=== PATIENT | male | born 1965 | race Caucasian/White ===

== ENCOUNTER 2017-06-30 12:08 | Observation (INO) | payer BC ==
[2017-06-30] VITALS (13 sets, daily range): BP systolic 116–140; BP diastolic 61–94
[~2017-06-30] VITALS: Ht 167.6 cm; Wt 88.5 kg
--- NOTE | ~2017-06-30 | H ---
[address] [address] HISTORY AND PHYSICAL Name: ROE SANDERS Room: [address] Anitha Ocasio#: [id number] Admission: 06/30/17 Attend Phys: Vinny Kee MD Discharge: 07/01/17 Date of : 65 Report #: [id number] THIS REPORT FOR: //name// Please refer to the History and Physical performed in the physician's office. By: 0704Medical Records Staff VERONICA /MYRNA
--- NOTE | ~2017-06-30 | H ---
[facility] [address] [place] [address] HISTORY AND PHYSICAL Name: ROE SANDERS Room: [address] Anitha Ocasio#: [id number] Admission: 06/30/17 Attend Phys: Vinny Kee MD Discharge: 07/01/17 Date of : 65 Report #: [id number] THIS REPORT FOR: //name// By: D: T: Medical Records Staff [facility] /
--- NOTE | ~2017-06-30 | H ---
[facility] [address] [facility] [place] [address] HISTORY AND PHYSICAL Name: ROE SANDERS Room: [address] Anitha Ocasio#: [id number] Admission: 06/30/17 Attend Phys: Vinny Kee MD Discharge: 07/01/17 Date of : 65 Report #: [id number] THIS REPORT FOR: //name// By: D: Medical Records Staff [facility] /
[~2017-06-30 12:08] MED LIST: ASA5UEC PO; ATORVASTATIN CA40 MG PO; B COMPLEX1 EAC1 PO; GLIPIZIDE 10 MG10 MG PO; GLUCOPHAGE XR750 MG PO; LISINOPRIL2.5 MG PO; NEXIUM40 MG PO; RANEXA500 MG PO; TOPROL XL25 MG PO; VITAMIN D1000 UNI1 PO; VITAMIN E400 UNIT PO
[2017-06-30 12:54] LABS: HEMATOCRIT 48.1 % (42.0-52.0); HEMOGLOBIN 16.9 gm/dL (14.0-18.0); MCH 30.9 pg (26.0-34.0); MCV 88.3 fL (80.0-100.0); MPV 7.8 fl. (7.2-11.1); RBC 5.45 mil/uL (4.50-6.00); RDW-CV 13.2 % (10.5-14.5); WBC 8.1 thou/uL (4.0-11.0)
[2017-06-30] MEDS ORDERED: CO Q-10100 M1 PO (12:56)
[2017-06-30] MEDS ORDERED: JARDIANCE10 MG PO (12:56)
[2017-06-30 13:26] LABS: APTT 29.2 Seconds (25.0-31.3)
[2017-06-30 13:34] LABS: ANION GAP 12 mmol/L (7-16); BUN 17 mg/dL (7-18); CALCIUM 9.1 mg/dL (8.5-10.1); CHLORIDE 99 mmol/L (98-107); CO2 27 mmol/L (21-32); GLUCOSE 177 mg/dL (70-99); POTASSIUM 3.8 mmol/L (3.5-5.1); SODIUM 138 mmol/L (136-145)
[2017-06-30 13:39] LABS: ALBUMIN 4.7 g/dL (3.4-5.0); ALKALINE PHOSPHATASE 107 U/L (46-116); CHOLESTEROL 211 mg/dL (<200); HDL CHOLESTEROL 34 mg/dL (>40); LDL CHOLESTEROL 140 mg/dL (<100); SERUM ASSESSMENT Clear; SGOT 23 U/L (15-37); SGPT 47 U/L (30-65); TC:HDL 6.2 Ratio (Not establshd); TOTAL BILIRUBIN 0.6 mg/dL (<0.1-1.0); TOTAL PROTEIN 8.3 g/dL (6.4-8.2); TRIGLYCERIDE 188 mg/dL (<150); VLDL 38 mg/dL (<40)
--- NOTE | 2017-06-30 17:51 | EKG ---
[place] [address] ELECTROCARDIOGRAM REPORT Name: ELLIEROE HUNT Room: [address] IN .R.#: [id number] Admission: 06/30/17 Attend Phys: Vinny Kee MD Discharge: Date of : 65 Report #: [id number] THIS REPORT FOR: //name// [facility] Test Date: 2017-06-30 Test Time: 13:28:25 Pat Name: ROE SANDERS Department: Room: [facility] Gender: M Criminal Investigator: : 1965 Requested By: Vinny Kee Order Number: [id number] Calli MD: Issa Nicholson Measurements Intervals [place] Rate: 77 P: 42 ID: 157 QRS: -35 QRSD: 111 T: 33 QT: 382 QTc: 433 Interpretive Statements Sinus rhythm Left axis deviation ST elev, probable normal early repol pattern No previous ECG available for comparison Electronically Signed On 06-30-2017 17:51:49 CDT by Issa Nicholson [email or web address] <ELECTRONICALLY SIGNED> By: Issa Nicholson MD, [facility] 06/30/17 1751 1328 Issa Nicholson MD, FACC /EPI
[2017-07-01] VITALS: BP 120/76
[2017-07-01 04:00] VITALS: BP 114/77
[2017-07-01 05:11] LABS: HEMATOCRIT 45.7 % (42.0-52.0); HEMOGLOBIN 15.6 gm/dL (14.0-18.0); MCH 30.6 pg (26.0-34.0); MCHC 34.2 g/dL (28.0-37.0); MCV 89.5 fL (80.0-100.0); MPV 7.7 fl. (7.2-11.1); RBC 5.11 mil/uL (4.50-6.00); RDW-CV 13.1 % (10.5-14.5); WBC 8.4 thou/uL (4.0-11.0)
[2017-07-01 05:26] LABS: ALBUMIN 3.9 g/dL (3.4-5.0); CALCIUM 8.9 mg/dL (8.5-10.1); CREATININE 0.9 mg/dL (0.6-1.3); POTASSIUM 3.8 mmol/L (3.5-5.1); TOTAL BILIRUBIN 0.7 mg/dL (<0.1-1.0); TOTAL PROTEIN 6.8 g/dL (6.4-8.2); TROPONIN-I LEVEL 0.15 ng/mL (<0.06)
[2017-07-01 08:00] VITALS: BP 117/78
[2017-07-01 08:52] VITALS: BP 117/78
[2017-07-01 09:17] VITALS: BP 117/78
[2017-07-01 09:46] VITALS: BP 117/78
[2017-07-01] MEDS ORDERED: BRILINTA90 MG PO (11:42)
--- NOTE | 2017-07-01 16:17 | D ---
[address] [address] DISCHARGE SUMMARY Name: ROE SANDERS Room: [address] Anitha Ocasio#: [id number] Admission: 06/30/17 Attend Phys: Vinny Kee MD Discharge: 07/01/17 Date of : 65 Report #: [id number] THIS REPORT FOR: //name// CC: Mora Kee DISCHARGE DIAGNOSES: 1. Unstable angina. 2. Coronary artery disease. 3. Hyperlipidemia. PROCEDURES DURING THE HOSPITALIZATION: Percutaneous coronary intervention with drug-eluting stent placement to the mid to distal left anterior descending coronary artery. HOSPITAL COURSE: The patient was brought in electively for left heart catheterization. On coronary angiography, he was found to have a high-grade 90% stenosis involving his mid to distal left anterior descending coronary artery. He had patent stents in the proximal to mid LAD, first obtuse marginal and proximal right coronary artery. By left ventriculogram, he has normal left ventricular systolic function. The patient underwent percutaneous coronary intervention with placement of a 2.0 x 15 mm length drug-eluting stent to the mid to distal LAD. The patient tolerated the procedure well and without complication. During hospitalization, labs were checked. His basic metabolic profile was within normal limits. Serum glucose was mildly elevated at 157. LFTs were within normal limits. EGFR was 89. Troponin post-procedure was 0.15. A lipid profile showed a total cholesterol 211, triglycerides 188, HDL 34, LDL 140. CBC was within normal limits. DISCHARGE MEDICATIONS: Include Brilinta 90mg p.o. b.i.d., Nexium 1 tablet daily, lisinopril 2.5 mg daily, glipizide 10 mg daily, atorvastatin 40 mg daily, aspirin 81 mg daily, Zetia 10 mg daily, Coq10 one tablet daily, vitamin D 1000 units daily, Jardiance 10 mg daily, metformin 750 mg as directed, Ranexa 500 mg b.i.d., and vitamin E 400 units daily. DISPOSITION: The patient will follow up with myself in 6 weeks in the Cardiology office. <ELECTRONICALLY SIGNED> By: Vinny Kee MD, FACC 07/01/17 1617 0935 1031[facility] Kee MD, FACC /nt
--- NOTE | 2017-07-02 13:17 | CARD ---
[address] [address] CARDIAC CATH REPORT Name: ROE SANDERS Room: [address] Anitha Ocasio#: [id number] Admission: 06/30/17 Attend Phys: Vinny Kee MD Discharge: 07/01/17 Date of : 65 Report #: [id number] THIS REPORT FOR: //name// APPROVED REPORT Study performed: 06/30/2017 12:33:56 Patient Details Patient Status: Out-Patient Room #: The patient is a 51 year-old male Event Personnel Vinny Kee Finance And Administration Manager, Jordana Costa RN Personal Investment Adviser, Nabor Renee (R) Monitor, Emily Cavanaugh Holkins, John Quantitative Analyst Procedures Performed MOIR[facility] Place w/wo Plasty Single LAD; left heart catheterization left ventriculography and selective coronary arteriography Indication Unstable angina Risk Factors Family History, Hypercholesterolemia Admission/Lab Medications/Medications given during procedure Aspirin, Platelet Aff. Inhib., Angiomax bolus and infusion Procedure Narrative The patient was brought electively to the Cardiac Catheterization Laboratory and was prepped and draped in a sterile manner. The right wrist was infiltrated with 1% Lidocaine subcutaneous anesthesia. A Slender Glidesheath sheath was inserted into the Right Radial Artery. Coronary angiography was performed using coronary diagnostic catheters. The right coronary system was accessed and visualized with a Diagnostic [place] 4.0 6fr catheter. The left coronary system was accessed and visualized with a Diagnostic [place] 4.0 6fr catheter. The left ventricle was accessed and visualized with a Diagnostic Angled Pig catheter. Left ventricular/Aortic Valve gradient assessed via catheter pullback. Left ventriculogram was performed in SCHUSTER projection. Closure device was deployed with a Fr Vasc-Band Reg 24cm. The patient tolerated the procedure well and there were no complications associated with the procedure[place] [address] CARDIAC CATH REPORT Name: ROE SANDERS Room: [address] Ninfa#: [id number] Admission: 06/30/17 Attend Phys: Vinny Kee MD Discharge: 07/01/17 Date of : 65 Report #: [id number] hematoma. Intraoperative Conscious Sedation Sedation start time: 15:37 Case end Time: 16:35 Fentanyl 25 mcg Versed 2 mg Fluoro Time: 14.4 minutes Dose: DAP [id number] cGycm2 1896 mGy Contrast Type and Amount: Visipaque 300 ml Coronary Angiography The patient's coronary anatomy is right dominant. Diagnostic Cath Left Main 0% narrowing LAD 30% proximal 40% mid and 90% distal LAD stenosis Circumflex 70% tubular mid circumflex narrowing Right Coronary Dominant vessel with 30% mid and distal narrowing as Left Ventriculography The left ventricle is normal in size with normal contractility. The left ventricular ejection fraction is estimated to be 60%. Left ventricular wall motion abnormalities are not present. There is no mitral insufficiency. Hemodynamics The aortic pressure is 115/72 mmHg with a mean of mmHg. The left ventricular pressure is 121/3 mmHg with a mean of mmHg. The left ventricular end diastolic pressure is 4 mmHg. There was no gradient across the aortic valve upon pullback. PCI Technique Lesion Anticoagulation was achieved with Angiomax. Patient was preloaded with Angiomax IV 13.5 ml. Percutaneous coronary intervention was performed on the distal left anterior descending artery segment. The lesion stenosis prior to intervention was 90% with TAL 0 flow. A 6FR XB 3.0 100CM Guide Catheter was used to engage the ostium. A IG: ProwaterFlex 180CM Interventional Guidewire was used to cross the lesion. BALLOON DILATION A Balloon catheter Mini Trek RX 2.0 X 12 was inserted and inflated up to 10.00atm for 22seconds. [place] [address] CARDIAC CATH REPORT Name: ROE SANDERS Natalio Room: [address] Ninfa#: [id number] Admission: 06/30/17 Attend Phys: Vinny Kee MD Discharge: 07/01/17 Date of : 65 Report #: [id number] STENT DEPLOYMENT A drug-eluting stent Xience Alpine RX 2.25X15 was inserted and inflated up to 8.00atm for 13seconds. Additional Inflation: 9.00atm for 13seconds. Additional Inflation: 8.00atm for 16seconds. Final angiography reveals 0 % stenosis with TAL 3 flow. Conclusion #1 significant coronary artery disease characterized by the following: A 30% proximal 40% mid and 90% distal LAD stenosis, B 70% tubular narrowing of the midportion of the nondominant circumflex, C dominant right coronary artery with 30% mid and distal narrowings #2 normal left ventricular systolic function, estimate ejection fraction being 65% #3 normal left-sided hemodynamics study, #4 successful percutaneous coronary intervention with deployment of drug-eluting stent at site of 90% distal LAD stenosis with 0% residual narrowing following stent deployment and TAL-3 flow the distal vessel. Recommendations Cardiac Risk Reduction Program Aggressive Medical Therapy Medications Administered Aspirin (any) Ticagrelor Diagnostic Cath Approved by: Vinny Kee MD Date/Time: 07/02/17 at 1316 hrs. <ELECTRONICALLY SIGNED> By: Issa Nicholson MD, FACC 07/02/17 1317 16 1317Issa Nicholson MD, FAC /INF
--- NOTE | 2017-07-02 17:17 | EKG ---
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: : 1965 Requested By: Issa Nicholson Order Number: [id number] Calli MD: Vinny Kee Measurements Intervals [place] Rate: 76 P: 82 OR: 181 QRS: -13 QRSD: 104 T: -20 QT: 382 QTc: 430 Interpretive Statements Sinus rhythm Borderline ST elevation, anterior leads Artifact in lead(s) II,III,aVL,aVF and baseline wander in lead(s) I,II,aVR Compared to ECG 06/30/2017 13:28:25 Left-axis deviation no longer present ST (T wave) deviation still present Electronically Signed On 07-02-2017 17:16:55 CDT by Vinny Kee [email or web address] <ELECTRONICALLY SIGNED> By: Vinny Kee MD, [facility] 07/02/17 1716 26 26 Vinny Kee MD, [facility] /EPI
--- NOTE | 2017-07-02 17:21 | EKG ---
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: : 1965 Requested By: Issa Nicholson Order Number: [id number] Calli MD: Vinny Kee Measurements Intervals [place] Rate: 81 P: 51 NE: 156 QRS: -23 QRSD: 108 T: 8 QT: 367 QTc: 426 Interpretive Statements Sinus rhythm Borderline left axis deviation ST elev, probable normal early repol pattern Compared to ECG 06/30/2017 13:28:25 No significant changes Electronically Signed On 07-02-2017 17:21:09 CDT by Vinny Kee [email or web address] <ELECTRONICALLY SIGNED> By: Vinny Kee MD, FACC 07/02/17 1721 0829 Vinny Kee MD, [facility] /EPI
== END 2017-07-01 12:00 | disposition home or self-care (01) ==
LOC: M.CL 12:08 → M.TBA-ER 16:49 → M.2W 16:49
PROVIDERS: Internal Medicine; ADMIT Internal Medicine Cardiovascular Disease
DX: I25.110 Atherosclerotic heart disease of native coronary artery with unstable angina pectoris (principal); E78.5 Hyperlipidemia, unspecified; I10 Essential (primary) hypertension; E11.9 Type 2 diabetes mellitus without complications; N52.01 Erectile dysfunction due to arterial insufficiency; K21.9 Gastro-esophageal reflux disease without esophagitis; Z95.5 Presence of coronary angioplasty implant and graft

== ENCOUNTER 2018-05-04 07:27 | Observation (INO) | payer BC ==
[~2018-05-04] VITALS: Ht 167.6 cm; Wt 83.9 kg
--- NOTE | ~2018-05-04 | H ---
[address] [address] HISTORY AND PHYSICAL Name: ROE SANDERS Room: [address] Anitha MMarcy#: [id number] Admission: 05/04/18 Attend Phys: Issa Nicholson MD, Discharge: 05/05/18 Date of : 65 Report #: [id number] THIS REPORT FOR: //name// Please refer to the History and Physical performed in the physician's office. By: 0845Medical Records Staff VERONICA /MYRNA
[~2018-05-04 07:27] MED LIST changes: +BRILINTA90 MG PO; +CO Q-10100 M1 PO; +JARDIANCE10 MG PO
[2018-05-04 08:02] VITALS: BP 120/79
[2018-05-04 08:19] LABS: HEMATOCRIT 47.2 % (42.0-52.0); HEMOGLOBIN 16.5 gm/dL (14.0-18.0); MCH 31.6 pg (26.0-34.0); MCHC 34.9 g/dL (28.0-37.0); MCV 90.6 fL (80.0-100.0); MPV 7.9 fl. (7.2-11.1); RBC 5.21 mil/uL (4.50-6.00); RDW-CV 13.5 % (10.5-14.5); WBC 6.6 thou/uL (4.0-11.0)
[2018-05-04 08:29] LABS: ANION GAP 10 mmol/L (7-16); BUN 19 mg/dL (7-18); CALCIUM 9.2 mg/dL (8.5-10.1); CHLORIDE 101 mmol/L (98-107); CO2 29 mmol/L (21-32); GLUCOSE 217 mg/dL (70-99); POTASSIUM 4.1 mmol/L (3.5-5.1); SODIUM 140 mmol/L (136-145)
[2018-05-04 08:30] LABS: APTT 27.5 Seconds (25.0-31.3); PROTIME 10.2 Seconds (9.20-11.50)
[2018-05-04 08:33] LABS: ALBUMIN 4.2 g/dL (3.4-5.0); ALKALINE PHOSPHATASE 102 U/L (46-116); CHOLESTEROL 157 mg/dL (<200); HDL CHOLESTEROL 37 mg/dL (>40); LDL CHOLESTEROL 90 mg/dL (<100); SGOT 17 U/L (15-37); SGPT 44 U/L (30-65); TC:HDL 4.2 Ratio (Not establshd); TOTAL BILIRUBIN 0.7 mg/dL (<0.1-1.0); TOTAL PROTEIN 7.5 g/dL (6.4-8.2); TRIGLYCERIDE 153 mg/dL (<150); VLDL 31 mg/dL (<40)
[2018-05-04 08:38] LABS: SERUM ASSESSMENT Clear
[2018-05-04 15:30] VITALS: BP 115/62
[2018-05-04 16:52] VITALS: BP 120/79
--- NOTE | 2018-05-04 18:26 | EKG ---
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 Scientist: : 1965 Requested By: Issa Nicholson Order Number: [id number] Calli MD: Vinny Kee Measurements Intervals [place] Rate: 69 P: 77 [place]: 166 QRS: 6 QRSD: 107 T: 33 QT: 388 QTc: 416 Interpretive Statements Sinus rhythm ST elev, probable normal early repol pattern Compared to ECG 07/01/2017 08:29:26 No significant changes Electronically Signed On 05-04-2018 18:26:24 FILTER PRESS TENDER HEAD by Vinny Kee [email or web address] <ELECTRONICALLY SIGNED> By: Vinny Kee MD, [facility] 05/04/18 1826 1417 1417 Vinny Kee MD, FAC /EPI
--- NOTE | 2018-05-04 18:27 | EKG ---
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: : 1965 Requested By: Issa Nicholson Order Number: [id number] Calli MD: Vinny Kee Measurements Intervals [place] Rate: 72 P: 39 ND: 164 QRS: -15 QRSD: 91 T: 34 QT: 375 QTc: 411 Interpretive Statements Sinus rhythm Borderline left axis deviation ST elev, probable normal early repol pattern Baseline wander in lead(s) V1,V3 Compared to ECG 07/01/2017 08:29:26 No significant changes Electronically Signed On 05-04-2018 18:27:24 INHALATION THERAPIST by Vinny Kee [email or web address] <ELECTRONICALLY SIGNED> By: Vinny Kee MD, FACC 05/04/18 1827 1231 1231 Vinny Kee MD, [facility] /EPI
--- NOTE | 2018-05-04 18:28 | EKG ---
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 Breeder: : 1965 Requested By: Issa Nicholson Order Number: [id number] Calli MD: Issa Nicholson Measurements Intervals [place] Rate: 71 P: 52 [place]: 166 QRS: -8 QRSD: 91 T: 38 QT: 362 QTc: 394 Interpretive Statements Sinus rhythm ST elev, probable normal early repol pattern Compared to ECG 07/01/2017 08:29:26 No significant changes Electronically Signed On 05-04-2018 18:28:25 LIFE SCIENTIST by Issa Nicholson [email or web address] <ELECTRONICALLY SIGNED> By: Issa Nicholson MD, [facility] 05/04/18 1828 6 6 Issa Nicholson MD, [facility] /EPI
[2018-05-04 20:00] VITALS: BP 111/69
[2018-05-05] VITALS: BP 105/66
[2018-05-05 04:00] VITALS: BP 122/69
[2018-05-05 05:05] LABS: HEMATOCRIT 42.1 % (42.0-52.0); HEMOGLOBIN 14.6 gm/dL (14.0-18.0); MCH 30.8 pg (26.0-34.0); MCHC 34.6 g/dL (28.0-37.0); RBC 4.73 mil/uL (4.50-6.00); RDW-CV 13.3 % (10.5-14.5)
[2018-05-05 05:37] LABS: ALBUMIN 3.7 g/dL (3.4-5.0); CALCIUM 8.6 mg/dL (8.5-10.1); CREATININE 0.9 mg/dL (0.6-1.3); POTASSIUM 3.6 mmol/L (3.5-5.1); TOTAL BILIRUBIN 0.7 mg/dL (<0.1-1.0); TOTAL PROTEIN 6.6 g/dL (6.4-8.2); TROPONIN-I LEVEL 0.41 ng/mL (<0.06)
[2018-05-05 08:00] VITALS: BP 105/69
[2018-05-05 09:00] VITALS: BP 120/79
[2018-05-05] MEDS ORDERED: ASPIR 8181 MG PO (10:28)
[2018-05-05] MEDS ORDERED: TRADJENTA5 MG (10:33)
--- NOTE | 2018-05-05 14:44 | D ---
[address] [address] DISCHARGE SUMMARY Name: ROE SANDERS Room: [address] Anitha Ocasio#: [id number] Admission: 05/04/18 Attend Phys: Issa Nicholson MD, Discharge: 05/05/18 Date of : 65 Report #: [id number] THIS REPORT FOR: //name// CC: Mora Nicholson DATE OF SERVICE: 05/05/2018 FINAL DISCHARGE DIAGNOSES: 1. Unstable angina. 2. Coronary artery disease. 3. Type 2 diabetes. 4. Hyperlipoproteinemia. PROCEDURES: 05/04/2018 -- left heart catheterization, left ventriculography, selective coronary arteriography and percutaneous coronary intervention to the circumflex. The patient is a very pleasant 52-year-old male with diabetes, hypercholesterolemia and aggressive coronary artery disease. He is status post prior stenting of the LAD 10 months ago. He presented to Dr. Kee with recurrent chest pain similar to his prior angina following an unstable course. In the context of unstable angina, he underwent cardiac catheterization on 05/04/2018, which revealed 90% proximal -- mid circumflex stenosis with 75% tubular distal circumflex narrowing. The previously deployed distal LAD stent was widely patent, and there was 60-70% mid LAD narrowing. There was 40% proximal, mid and distal right coronary narrowing, the latter being a dominant vessel. Given this data, I elected to proceed with percutaneous coronary intervention of the circumflex, deploying 3 sequential drug-eluting stents, one at the site of 90% proximal -- mid vessel narrowing and 2 at the site of 75% tubular distal circumflex narrowing, with 0 and 10% residual following stent deployment and TAL 3 flow of the distal vessel. Troponin demetrius inconsequentially to a peak value of 0.41. Additional lab on 05/05 revealed a sodium 138, potassium 3.8, BUN 19, creatinine 0.9, hemoglobin 14.6, white blood cell count 8000, with 213,000 platelets. He ambulated in the hallways without difficulty. There was good hemostasis at the right femoral site of catheterization. He was discharged to home on the following medications: Aspirin 81 mg daily, atorvastatin 40 mg at bedtime, cholecalciferol for vitamin D 1000 units daily, Nexium 40 mg daily, glipizide 10 mg daily, Jardiance 10 mg daily, lisinopril 2.5 mg daily. Metformin 750 mg daily, to be resumed on 05/06. Ranolazine 500 [place] [address] DISCHARGE SUMMARY Name: ROE SNADERS Room: [address] Anitha Ocasio#: [id number] Admission: 05/04/18 Attend Phys: Issa Nicholson MD, Discharge: 05/05/18 Date of : 65 Report #: [id number] b.i.d., ticagrelor or Brilinta 90 mg b.i.d. CoQ10 of 100 mg daily, vitamin E 400 units daily. He is discharged home in stable condition with followup with Dr. Kee on 06/23 at 1340 hours. Thus, the patient is discharged to home in stable condition on the aforementioned medications with followup as iterated above. <ELECTRONICALLY SIGNED> By: Issa Nicholson MD, [facility] 05/05/18 1444 0927 1231Issa Nicholson MD, FAC /nt
--- NOTE | 2018-05-05 15:32 | EKG ---
[place] [address] ELECTROCARDIOGRAM REPORT Name: ROE SANDERS Room: [address]#: [id number] Admission: 05/04/18 Attend Phys: Issa Nicholson MD, Discharge: 05/05/18 Date of : 65 Report #: [id number] THIS REPORT FOR: //name// [facility] Test Date: 2018-05-05 Test Time: 03:40:59 Pat Name: ROE SANDERS Department: Room: [facility] Gender: M Aircraft Cylinder Mechanic: JAMAL : 1965 Requested By: Issa Nicholson Order Number: [id number] Calli MD: Issa Nicholson Measurements Intervals [place] Rate: 74 P: 54 ID: 159 QRS: -11 QRSD: 104 T: 32 QT: 379 QTc: 421 Interpretive Statements Sinus rhythm Baseline wander in lead(s) V3 Compared to ECG 05/04/2018 14:17:50 ST (T wave) deviation no longer present Electronically Signed On 05-05-2018 15:32:46 BORING MACHINE SET UP OPERATOR JIG by Issa Nicholson [email or web address] <ELECTRONICALLY SIGNED> By: Issa Nicholson MD, [facility] 05/05/18 1532 0340 0340 Issa Nicholson MD, [facility] /EPI
--- NOTE | 2018-05-06 11:13 | CARD ---
[address] [address] CARDIAC CATH REPORT Name: ROE SANDERS Room: [address] Anitha MMarcy#: [id number] Admission: 05/04/18 Attend Phys: Issa Nicholson MD, Discharge: 05/05/18 Date of : 65 Report #: [id number] THIS REPORT FOR: //name// APPROVED REPORT Study performed: 05/04/2018 09:03:11 Patient Details Patient Status: OP Room #: The patient is a 52 year-old male Event Personnel Issa Nicholson Scallop Binder, Tamika Sinclair RN Personal Property Assessor, Lucero Ramirez RTR Monitor, Serafin Carter Scrub Procedures Performed Art Access - R femoral artery* MOIRA Place w/wo Plasty Single CIRC Hemostasis w/ Angioseal; left heart catheterization left ventriculography and selective coronary arteriography Indication Unstable angina Risk Factors Family History, Hypercholesterolemia Previous Procedures/Diagnoses Previous PCI Admission/Lab Medications/Medications given during procedure Ticagrelor PO 180 mg, Angiomax Drip IV 29.4 ml per hr, Angiomax IV 13 ml Procedure Narrative The patient was brought electively to the Cardiac Catheterization Laboratory and was prepped and draped in a sterile manner. The right femoral was infiltrated with 2% Lidocaine subcutaneous anesthesia. A Rose Bud 6 FR sheath was inserted into the right femoral artery. Coronary angiography was performed using coronary diagnostic catheters. The right coronary system was accessed and visualized with a Diagnostic 6Fr JR4 catheter. The left coronary system was accessed and visualized with a Diagnostic 6Fr JL4 catheter[place] [address] CARDIAC CATH REPORT Name: ROE SANDERS Room: [address] Anitha Ocasio#: [id number] Admission: 05/04/18 Attend Phys: Issa Nicholson MD, Discharge: 05/05/18 Date of : 65 Report #: [id number] was accessed and visualized with a Diagnostic 6Fr straight pigtail catheter. Left ventricular/Aortic Valve gradient assessed via catheter pullback. Left ventriculogram was performed in SCHUSTER projection. Pre-demployment femoral angiogram was performed . Closure device was deployed with a Fr Angioseal STS 6Fr. Hemostasis was obtained with manual pressure following sheath removal without any complications. The patient tolerated the procedure well and there were no complications associated with the procedure. There was no hematoma. Intraoperative Conscious Sedation Sedation start time: 941 Case end Time: 1116 Fentanyl 100 mcg Versed 5 mg Fluoro Time: 22.5 minutes Dose: DAP [id number] cGycm2 2987 mGy Contrast Type and Amount: Visipaque 600 ml Coronary Angiography The patient's coronary anatomy is right dominant. Diagnostic Cath Left Main 0% narrowing LAD 30-40% proximal LAD narrowing and 60% tubular mid LAD narrowing with widely patent distal LAD stent Circumflex 90% mid vessel stenosis with 75% diffuse in-stent restenosis of the distal circumflex Right Coronary Dominant vessel with 40% ostial mid vessel and distal narrowings Left Ventriculography The left ventricle is normal in size with normal contractility. The left ventricular ejection fraction is estimated to be 60%. Left ventricular wall motion abnormalities are not present. There is no mitral insufficiency. Hemodynamics The aortic pressure is 112/64 mmHg with a mean of 86 mmHg. The left ventricular pressure is 112/-2 mmHg with a mean of mmHg. The left ventricular end diastolic pressure is 6 mmHg. Pullback from the left ventricle to the aorta revealed no gradient across the aortic valve. PCI Technique Lesion Percutaneous coronary [place] [address] CARDIAC CATH REPORT Name: ROE SANDERS [address] [id number] Admission: 05/04/18 Attend Phys: Issa Nicholson MD, Discharge: 05/05/18 Date of : 65 Report #: [id number] circumflex artery segment. The lesion stenosis prior to intervention was 90% with TAL 3 flow. A 6FR XB 3.0 100CM Guide Catheter was used to engage the ostium. A BMW 190cm Interventional Guidewire was used to cross the lesion. BALLOON DILATION A Balloon catheter NC Trek RX 2.5 X 12 was inserted and inflated up to 12.00atm for 15seconds. STENT DEPLOYMENT A drug-eluting stent BRAD 2.25X15 was inserted and inflated up to 12.00atm for 13seconds. Additional Inflation: 14.00atm for 8seconds. POST STENT DEPLOYMENT BALLOON DILATION A Balloon catheter NC Trek RX 2.5 X 12 was inserted and inflated up to 14.00atm for 8seconds. Additional Inflation: 15.00atm for 8seconds. Additional Inflation: 12.00atm for 8seconds. Final angiography reveals 10 % stenosis with TAL 3 flow. BALLOON DILATION A Balloon catheter was inserted and inflated up to 16.00atm for 15seconds. Additional Inflation: 18.00atm for 11seconds. PCI Technique Lesion 2 Percutaneous Coronary Intervention was performed on the distal circumflex artery segment. The lesion stenosis prior to intervention was 75% with TAL 3 flow. A 6FR XB 3.0 100CM Guide Catheter was used to engage the ostium. A BMW 190cm Interventional Guidewire was used to cross the lesion. Stent Deployment A drug-eluting stent Iota RX Stent 2.0X26mm, 2.0x12 was inserted and inflated up to 10.00atm for 11seconds. Additional Inflation: 12.00atm for 15seconds. Post Stent Deployment Balloon Dilation A Balloon catheter NC Trek RX 2.25x12 was inserted and inflated up to 10.00atm for 15seconds. Additional Inflation: 16.00atm for 14seconds. Additional Inflation: 16:00atm for 6seconds. Final angiography reveals 10 % stenosis with TAL 3 flow. PCI Technique Lesion Percutaneous coronary intervention was performed on the distal [address] [address] CARDIAC CATH REPORT Name: ROE SANDERS Room: [address] Anitha M.R.#: [id number] Admission: 05/04/18 Attend Phys: Issa Nicholson MD, Discharge: 05/05/18 Date of : 65 Report #: [id number] circumflex artery segment. STENT DEPLOYMENT A drug-eluting stent Iota RX Stent 2.0X12mm was inserted and inflated up to 14.00atm for 8seconds. Additional Inflation: 12.00atm for 8seconds. Additional Inflation: 18.00atm for 11seconds. Conclusion #1 significant coronary artery disease characterized by the following: A 30-40% proximal LAD narrowing with 60% tubular mid vessel narrowing and a widely patent distal LAD stent B nondominant circumflex with 90% mid vessel narrowing and 75% tubular in-stent restenosis of the distal circumflex C dominant right coronary artery with 40% ostial mid vessel and distal narrowings #2 normal left ventricular systolic function, estimate ejection fraction being 60% #3 normal left-sided hemodynamics study #4 successful percutaneous coronary intervention with deployment of drug-eluting stents at the sites of 90% mid and 75% tubular distal circumflex stenosis with 10% residual narrowing at both sites following stent deployment and TAL-3 flow to the distal vessel Recommendations Cardiac Risk Reduction Program Aggressive Medical Therapy Medications Administered Ticagrelor Diagnostic Cath Approved by: Issa Nicholson MD Date/Time: 05/06/2018 11:11:07 <ELECTRONICALLY SIGNED> By: Issa Nicholson MD, FACC 05/06/18 1112 11 111Issa Nicholson MD, FACC /INF
== END 2018-05-05 10:50 | disposition home or self-care (01) ==
LOC: M.CL 07:27 → M.TBA-CV 11:33 → M.2W 15:23
PROVIDERS: ADMIT Internal Medicine
DX: I25.110 Atherosclerotic heart disease of native coronary artery with unstable angina pectoris (principal); E11.9 Type 2 diabetes mellitus without complications; E78.5 Hyperlipidemia, unspecified; Z79.899 Other long term (current) drug therapy; Z79.82 Long term (current) use of aspirin